=== PATIENT | female | born 1945 | race Caucasian/White ===

== ENCOUNTER → 2024-07-14 10:43 | Outpatient (REF) | payer MEDICARE, BC, SELFPAY | LOC: PAVMRI 10:43 | PROVIDERS: ATTENDING PHYSICIAN Physician Assistant; FAMILY PHYSICIAN Family Medicine; REFERRING PHYSICIAN Orthopaedic Surgery | DX: M25.561 Pain in right knee (principal) | CPT/HCPCS: 73721 ==

== ENCOUNTER → 2024-10-19 08:06 | Outpatient (REF) | payer MEDICARE, BC, SELFPAY | LOC: HWRAD 08:06 | PROVIDERS: ATTENDING PHYSICIAN Student in an Organized Health Care Education/Training Program; FAMILY PHYSICIAN Family Medicine | DX: R05.1 Acute cough (principal) | CPT/HCPCS: 71046 ==

== ENCOUNTER → 2024-11-23 14:23 | Outpatient (REF) | payer MEDICARE, BC, SELFPAY | LOC: HWWDC 14:23 | PROVIDERS: ATTENDING PHYSICIAN Family Medicine | DX: Z13.820 Encounter for screening for osteoporosis (principal); Z12.31 Encounter for screening mammogram for malignant neoplasm of breast; M81.0 Age-related osteoporosis without current pathological fracture | CPT/HCPCS: 77063; 77067; 77080 ==

== ENCOUNTER → 2024-12-04 08:51 | Outpatient (REF) | payer MEDICARE, BC, SELFPAY | LOC: WDC 08:51 | PROVIDERS: ATTENDING PHYSICIAN Family Medicine | DX: R92.8 Other abnormal and inconclusive findings on diagnostic imaging of breast (principal) | CPT/HCPCS: 76642 ==